=== PATIENT | female | born 1975 | race Caucasian/White ===

== ENCOUNTER 2021-12-15 06:11 | Emergency (ER) | payer MEDICAID, OTHER ==
[~2021-12-15] VITALS: Ht 165.1 cm; Wt 113.9 kg
[2021-12-15 06:11] VITALS: BP 126/79
[2021-12-15] MEDS ORDERED: IBUP800T27 PO (08:27)
[2021-12-15] MEDS ORDERED: METH750T22 PO (08:27)
[2021-12-15] MEDS ORDERED: KETOROLAC TROMETH 60MG/2ML VIAL IM ONE (08:30)
== END 2021-12-15 08:30 | disposition home or self-care (01) ==
LOC: ER 06:11
DX: M72.2 Plantar fascial fibromatosis (principal)
CPT/HCPCS: 73620; 96372; 99283; J1885

== ENCOUNTER 2022-07-14 12:21 | Emergency (ER) | payer MEDICAID ==
[~2022-07-14] VITALS: Ht 170.2 cm; Wt 95.4 kg
[~2022-07-14 12:21] MED LIST: IBUP800T27 PO; METH750T22 PO
[2022-07-14] MEDS ORDERED: HYDROcodone-ACET 10/325MG TAB PO ONE (16:00)
[2022-07-14] MEDS ORDERED: KETOROLAC TROMETH 60MG/2ML VIAL IM ONE (16:00)
[2022-07-14] MEDS ORDERED: HYDR-4902 PO (16:44)
[2022-07-14] MEDS ORDERED: IBUP800T26 PO (16:44)
[2022-07-14] MEDS ORDERED: CYCL-839 PO (16:44)
[2022-07-14 16:52] VITALS: BP 118/74
== END 2022-07-14 16:52 | disposition home or self-care (01) ==
LOC: EDBD 12:21 → ER 12:21
DX: M47.816 Spondylosis without myelopathy or radiculopathy, lumbar region (principal); M54.40 Lumbago with sciatica, unspecified side; Z79.1 Long term (current) use of non-steroidal anti-inflammatories (NSAID); Z79.899 Other long term (current) drug therapy
CPT/HCPCS: 72100; 96372; 99283; J1885

== ENCOUNTER 2022-10-16 16:22 | Emergency (ER) | payer MEDICAID ==
[~2022-10-16] VITALS: Ht 165.1 cm; Wt 117.4 kg
[~2022-10-16 16:22] MED LIST changes: +CYCL-839 PO; +HYDR-4902 PO; +IBUP800T26 PO
[2022-10-16 17:11] LABS: Urine Bacteria FEW /hpf (None Seen); Urine Blood 3+ /uL (Negative); Urine Hyaline Cast FEW /lpf (0 - 2); Urine Mucus FEW (None Seen); Urine Specific Gravity 1.026 (1.001-1.035); Urine WBC 32 /hpf (0 - 5)
[2022-10-16 18:53] VITALS: BP 141/92
[2022-10-16] MEDS ORDERED: CYCL-837 PO (20:07)
[2022-10-16] MEDS ORDERED: IBUP800T27 PO (20:07)
[2022-10-16] MEDS ORDERED: SULF800T7 PO (20:07)
== END 2022-10-16 20:20 | disposition home or self-care (01) ==
LOC: ER 16:22
DX: S39.012A Strain of muscle, fascia and tendon of lower back, initial encounter (principal); S16.1XXA Strain of muscle, fascia and tendon at neck level, initial encounter; N39.0 Urinary tract infection, site not specified; V43.52XA Car driver injured in collision with other type car in traffic accident, initial encounter; Y93.89 Activity, other specified; Y92.488 Other paved roadways as the place of occurrence of the external cause; Y99.8 Other external cause status
CPT/HCPCS: 72100; 81001

== ENCOUNTER 2023-08-10 12:09 | Emergency (ER) | payer MEDICAID ==
[~2023-08-10] VITALS: Ht 165.1 cm; Wt 119.0 kg
[2023-08-10 12:09] VITALS: TEMP 97.5
[~2023-08-10 12:09] MED LIST changes: +CYCL-837 PO; +IBUP-1455 PO; +IBUP-1456 PO; -IBUP800T26 PO; -IBUP800T27 PO; +METH-1182 PO; -METH750T22 PO; +SULF800T23 PO
[2023-08-10 12:17] VITALS: O2SAT 100
[2023-08-10 13:09] LABS: Urine Bacteria FEW /hpf (None Seen); Urine Blood 3+ /uL (Negative); Urine Clarity HAZY (Clear); Urine Color Red (Yellow); Urine Mucus FEW (None Seen); Urine Protein, UAD 2+ (Negative); Urine Specific Gravity 1.026 (1.001-1.035); Urine Urobilinogen Normal (Negative); Urine WBC 104 /hpf (0 - 5); Urine pH 5.5 (5.0-8.0)
[2023-08-10 13:15] VITALS: BP 160/84; PULSE 84; RESP 20
[2023-08-10] MEDS: MORPHINE SULFATE 4 MG/ML SYR/VIAL IV ONE (13:15)
[2023-08-10] MEDS: PANTOPRAZOLE 40 MG/10 ML VIAL INJ IV ONE (13:15)
[2023-08-10] MEDS: ONDANSETRON HCL 4 MG/2 ML VIAL IV ONE (13:15)
[2023-08-10] MEDS: SODIUM CHLORIDE 0.9% 1,000 ML IVB ONE (13:16)
[2023-08-10 13:21] LABS: Basophils # (auto) 0.1 10 ^3/uL (0-0.2); Basophils % (auto) 0.9 % (0.0-2.0); Eosinophils # (auto) 0.3 10 ^3/uL (0-0.8); Mean Corpuscular Hemoglobin 26.7 pg (28.0-32.0); Monocytes # (auto) 0.9 10 ^3/uL (0-1.3); White Blood Cell 9.6 10^3/uL (4.4-10.8)
[2023-08-10 13:23] LABS: Eosinophils % (auto) 3.6 % (0.0-7.0); Hematocrit 41.9 % (36.0-46.0); Hemoglobin 13.7 g/dL (12.2-16.2); Lymphocytes # (auto) 2.7 10 ^3/uL (0.4-5.4); Lymphocytes % (auto) 27.9 % (10.0-50.0); Mean Corpuscular Hgb Conc. 32.6 g/dL (32.0-36.0); Mean Corpuscular Volume 81.9 fL (80.0-100.0); Monocytes % (auto) 9.5 % (0.0-12.0); Neutrophils # (auto) 5.6 10 ^3/uL (1.6-8.6); Neutrophils % (auto) 58.1 % (37.0-80.0); Nucleated Red Blood Cells % 0.3 %; Red Blood Cells 5.12 10^6/uL (4.0-5.20); Red Cell Distribution Width 16.8 % (11.8-14.3)
[2023-08-10] MEDS: cefTRIAXone 1GM/50ML D5W 50 ML IV ONE (13:30)
[2023-08-10 13:39] LABS: Alanine Aminotransferase 63 U/L (7-40); Albumin 3.9 g/dL (3.2-4.8); Alkaline Phosphatase 28 U/L (46-116); Anion Gap 7 (5-15); Aspartate Aminotransferase 53 U/L (13-40); BUN/Creatinine Ratio 11.5 (10.0-20.0); Blood Urea Nitrogen 9 mg/dL (9-23); Calcium 9.7 mg/dL (8.7-10.4); Carbon Dioxide 22 mmol/L (20-30); Chloride 108 mmol/L (98-107); Glucose 87 mg/dL (74-106); Lipase 34 U/L (12-53); Potassium 4.7 mmol/L (3.5-5.1); Sodium 137 mmol/L (136-145)
[2023-08-10 13:40] LABS: Bilirubin, Total 0.7 mg/dL (0.2-1.0)
[2023-08-10 13:57] LABS: Platelet Estimate Adequate
[2023-08-10 13:58] LABS: RBC Morphology Normal
[2023-08-10] MEDS ORDERED: TRAM50TA2 PO (16:29)
[2023-08-10] MEDS ORDERED: CIPR-173 PO (16:29)
== END 2023-08-10 16:29 | disposition home or self-care (01) ==
LOC: ER 12:09
DX: N39.0 Urinary tract infection, site not specified (principal); Z98.51 Tubal ligation status; Z91.040 Latex allergy status
CPT/HCPCS: 36415; 74176; 76705; 80053; 81001; 83690; 85025; 96365; 96375; 99285; C9113; J0696; J2270; J2405; J7030

== ENCOUNTER 2024-09-22 09:15 | Emergency (ER) | payer MEDICAID ==
[~2024-09-22] VITALS: Ht 165.1 cm; Wt 113.5 kg
[~2024-09-22 09:15] MED LIST changes: +CIPR-173 PO; +TRAM50TA2 PO
[2024-09-22 09:55] VITALS: PULSE 92; RESP 20; O2SAT 97
--- NOTE | 2024-09-22 10:26 | ED.PDOC ---
HPI Comments 49Y F with PMHx HTN presents to ED with chief complaint chest pain x1hr with SOB, productive cough, chills, sore throat, diarrhea, and rt arm numbness/tingling. Pt denies fever, nausea, vomiting, and all urinary symptoms. Pt has taken cough drops at home without relief. 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 No other symptoms/history reported. Chief Complaint: Chest Pain Time Seen by MD: 10:05 Primary Care Provider: TSERING MORENO Reviewed Notes: Nurses Notes, Medications, Allergies Allergies: Coded Allergies: Latex (Verified Allergy, Unknown, 08/10/23) Home Meds Active Scripts Ciprofloxacin Hcl (Cipro) 500 Mg Tab, 1 TAB PO BID, #14 TAB Prov:FRANCOIS VILLAFANA MD 08/10/23 Tramadol Hcl (Tramadol Hcl) 50 Mg Tab, 50 MG PO Q8HP PRN for 5 Days, #15 TAB Prov:FRANCOIS VILLAFANA MD 08/10/23 Cyclobenzaprine Hcl (Cyclobenzaprine Hcl) 5 Mg Tab, 1 TAB PO QPM PRN, #14 TAB 0 Refills Prov:ANNABEL JACQUES 10/16/22 Ibuprofen (Ibuprofen) 800 Mg Tab, 1 TAB PO TID PRN, #30 TAB 0 Refills Prov:ANNABEL JACQUES 10/16/22 Sulfamethoxazole W/Trimethopri (Trimethoprim/Sulfamethoxa) 1 Tab Tab, 1 TAB PO BID for 7 Days, #14 TAB 0 Refills Prov:ANNABEL JACQUES 10/16/22 Cyclobenzaprine Hcl (Cyclobenzaprine Hcl) 10 Mg Tab, 10 MG PO TID, #20 TAB Prov:OG CORTEZ 07/14/22 Hydrocodone-Acetaminophen (Hydrocodone Bitartrate/AC 5-325 mg) 1 Tab Tab, 1 TAB PO Q6HP PRN, #20 TAB Prov:OG CORTEZ 07/14/22 Ibuprofen Micronized (Ibuprofen) 800 Mg Tab, 800 MG PO Q8HP PRN, #30 TAB Prov:OG CORTEZ 07/14/22 Methocarbamol (Methocarbamol) 750 Mg Tab, 750 MG PO QHSP PRN for 20 Days, #20 TAB Prov:NAZIA IYER 12/15/21 Ibuprofen (Ibuprofen) 800 Mg Tab, 800 MG PO TID PRN, #30 TAB Prov:SHIREENNAZIA BUTTERFIELD 12/15/21 Information Source: Patient Mode of Arrival: Wheelchair Severity: Moderate Timing: Hours Duration: Since onset Prehospital treatment: None Location: Substernal Quality: Other Onset: Other Cardiac Risk Factors: HTN PE Risk Factors: None History of: None Modifying Factors: Nothing Associated Signs and Symptoms: SOB, Other Past Medical History PAST MEDICAL HISTORY: Arthritis, HTN Surgical History: , Tubal Ligation 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 History Family History Family History: Unknown Family History (Other): Appendicitis Social History Smoker: Non-Smoker Alcohol: Occasionally Drugs: Denies Drug Use Lives In: Home Constitutional: reports: chills; denies: diaphoresis, fatigue, fever, malaise, sweats, weakness, others EENTM: reports: throat pain; denies: blurred vision, double vision, ear bleeding, ear discharge, ear drainage, ear pain, ear ringing, eye pain, eye redness, hearing loss, mouth pain, mouth swelling, nasal discharge, nose bleeding, nose congestion, nose pain, photophobia, tearing, throat swelling, voice changes, others Respiratory: reports: cough, shortness of breath; denies: hemoptysis, orthopnea, SOB at rest, SOB with excertion, stridor, wheezing, others Cardiovascular: reports: chest pain; denies: dizzy spells, diaphoresis, Dyspnea on exertion, edema, irregular heart beat, left arm pain, lightheadedness, palpitations, PND, syncope, others Gastrointestinal: reports: diarrhea; denies: abdomen distended, abdominal pain, blood streaked bowels, constipated, dysphagia, difficulty swallowing, hematemesis, melena, nausea, poor appetite, poor fluid intake, rectal bleeding, rectal pain, vomiting, others Genitourinary: denies: abnormal vagina bleeding, burning, dyspareunia, dysuria, flank pain, frequency, hematuria, incontinence, pain, , vagina discharge, urgency, others Neurological: reports: numbness (right arm), tingling (right arm); denies: dizziness, fainting, headache, left sided numbness, left sided weakness, paresthesia, pre-existing deficit, right sided numbness, right sided weakness, seizure, speech problems, tremors, weakness, others Musculoskeletal: denies: back pain, gout, joint pain, joint swelling, muscle pain, muscle stiffness, neck pain, others Integumetry: denies: bruises, change in color, change in hair/nails, dryness, laceration, lesions, lumps, rash, wounds, others Allergic/Immunocompromised: denies: Difficulty Healing, Frequent Infections, Hives, Itching, others Hematologic/Lymphatic: denies: anemia, blood clots, easy bleeding, easy bruising, swollen glands, others Endocrine: denies: excessive hunger, excessive sweating, excessive thirst, excessive urination, flushing, intolerance to cold, intolerance to heat, unexplained weight gain, unexplained weight loss, others Psychiatric: denies: anxiety, bipolar disorder, depression, hopeless, panic disorder, schizophrenia, sleepless, suicidal, others All Other Systems: Reviewed and Negative Physical Exam General Appearance: No Apparent Distress, Normal HEENT: Normal ENT Inspection, Pharynx Normal, TMs Normal Neck: Full Range of Motion, Non-Tender, Normal, Normal Inspection Respiratory: Chest Non-Tender, Lungs Clear, No Accessory Muscle Use, No Respiratory Distress, Normal Breath Sounds Cardiovascular: No Edema, No JVD, No Murmur, No Gallop, Normal Peripheral Pulses, Regular Rate/Rhythm Breast Exam: Deferred Gastrointestinal: No Organomegaly, Non Tender, No Pulsatile Mass, Normal Bowel Sounds, Soft Genitalia: Deferred Pelvic: Deferred Rectal: Deferred Extremities: No calf tenderness, Normal capillary refill, Normal inspection, Normal range of motion, Non-tender, No pedal edema Musculoskeletal : Apperance: Normal Neurologic: Alert, medical doctor II-XII nml as Tested, No Motor Deficits, Normal Affect, Normal Mood, No Sensory Deficits Cerebellar Function: NOT DONE Reflexes: NOT DONE Skin: Dry, Normal Color, Warm Lymphatic: No Adenopathy Was a procedure done? Was a procedure done?: No CP Differential Dx Differential Diagnosis: Electrolyte Disorder, PVC's Differential Diagnosis: CHF, HTN Essential Differential Diagnosis: Chest Wall Pain, Gastritis, Myocardial Infarction, Pneumonia X-Ray, Labs, Meds, VS Vital Signs Date Time Temp Pulse Resp B/P (MAP) Pulse Ox O2 Delivery O2 Flow Rate FiO2 09/22/24 12:16 94 09/22/24 10:18 92 09/22/24 09:55 92 20 97 Room Air* 0 21 09/22/24 09:55 98.6 91 18 127/63 (84) 98 98.6 09/22/24 09:21 87 09/22/24 09:16 97.8 85 24 149/72 (97) 98 97.8 Lab Test 09/22/24 10:45 09/22/24 09:33 Range/Units Troponin I High Sensitivity 3 L 3 L </=34 ng/L White Blood Count 12.0 H 4.4-10.8 10^3/uL Red Blood Count 5.16 4.0-5.20 10^6/uL Hemoglobin 14.4 12.2-16.2 g/dL Hematocrit 43.1 36.0-46.0 % Mean Corpuscular Volume 83.5 80.0-100.0 fL Mean Corpuscular Hemoglobin 28.0 28.0-32.0 pg Mean Corpuscular Hemoglobin Concent 33.5 32.0-36.0 g/dL Red Cell Distribution Width 16.0 H 11.8-14.3 % Platelet Count 244 140-450 10^3/uL Mean Platelet Volume 9.1 6.9-10.8 fL Neutrophils (%) (Auto) 81.0 H 37.0-80.0 % Lymphocytes (%) (Auto) 9.1 L 10.0-50.0 % Monocytes (%) (Auto) 7.1 0.0-12.0 % Eosinophils (%) (Auto) 2.3 0.0-7.0 % Basophils (%) (Auto) 0.5 0.0-2.0 % Neutrophils # (Auto) 9.7 H 1.6-8.6 10 ^3/uL Lymphocytes # (Auto) 1.1 0.4-5.4 10 ^3/uL Monocytes # (Auto) 0.9 0-1.3 10 ^3/uL Eosinophils # (Auto) 0.3 0-0.8 10 ^3/uL Basophils # (Auto) 0.1 0-0.2 10 ^3/uL Nucleated Red Blood Cells 0.2 % Sodium Level 138 136-145 mmol/L Potassium Level 3.9 3.5-5.1 mmol/L Chloride Level 105 98-107 mmol/L Carbon Dioxide Level 19 L 20-31 mmol/L Anion Gap 14 5-15 Blood Urea Nitrogen 8 L 9-23 mg/dL Creatinine 0.83 0.550-1.02 mg/dL Glomerular Filtration Rate Calc 86 >90 mL/min BUN/Creatinine Ratio 9.6 L 10.0-20.0 Serum Glucose 96 74-106 mg/dL Calcium Level 10.3 8.7-10.4 mg/dL [facility] [id number] [place] [address] Ph: [phone] DIAGNOSTIC IMAGING Diagnostic Imaging Report : [id number] Signed PATIENT: RASHAD JAMESON ACCT: [id number] UNIT: [id number] : 1975 LOC: ER ROOM / BED: / AGE / SEX: 49 / F ADM STATUS: REG ER SERVICE 1251 ORDERING PHYSICIAN: CAESAR ROBERTS MD PROCEDURE(s): CXRP - CHEST PORTABLE REASON: chest pain ORDER NUMBER(s): [id number], ACCESSION NUMBER(s): [id number] INDICATION: chest pain TECHNIQUE: Frontal view of the chest. COMPARISON: None FINDINGS: The heart and mediastinal contours are grossly unremarkable. There is no evidence of pleural disease. The lungs are clear. The bony structures of the chest are intact without fracture. IMPRESSION: 1. No evidence of acute disease. ATED BY: SATINDER ROBERT MD DICTATED DATE/TIME: 09/22/241328 SIGNED BY: SATINDER ROBERT MD SIGNED DATE/TIME: 09/22/24 132 CC: Time of 1ST Reevaluation: 10:35 Reevaluation 1ST: Unchanged Patient Education/Counseling: Diagnosis, Treatment Family Education/Counseling: No Family Present Departure 1 Departure Time of Disposition: 14:32 (Patient presented with chest pain that was concerning for possible STEMI, ACS, PE, Pneumonia, Muscle Strain, COPD, Dissecti on. Data: 1. I ordered and reviewed the result of at least 3 labs including a CBC, BMP, and Troponin. 2. I independently interpreted the following tests: EKG which shows normal sinus rhythm and Chest X-ray which shows a benign chest.Risk:This patient presented with a high risk of morbidity due to further diagnostic testing or treatment and may suffer from an acute cardiac or respir atory disorder. After review of all the data patient is unlikely to have a pe , dissection, and is low risk for acs. Patient is stable at this time.Workup so far is benign and patient will be discharged with outpatient followup. ) Impression: Primary Impression: Acute chest pain Disposition: HOME / SELF CARE / HOMELESS Condition: Stable Additional Instructions: You presented today with chest pain. Your workup today was benign including labs, troponin, EKG, chest x-ray. Your pain may be from musculoskeletal strain, acid reflux, anxiety, a virus, or many other factors. It is important to follow up with your regular doctor within 1 week. If your symptoms worsen or you have any other concerns please return to the emergency room. Critical Care Note Critical Care Time?: No Stability Stability form required: No Heart Score Heart Score: Heart Score Response (Comments) Value History Slightly Suspicious 0 EKG Normal 0 Age 45-64 1 Risk Factors 1 or 2 risk factors 1 Troponin Normal limit 0 Total 2 I personally scribed for CAESAR ROBERTS MD ([facility]) on 09/22/24 at 10:26. Electronically submitted by Vianca Ellis ([employer]). I personally scribed for CAESAR ROBERTS MD ([email or web address]) on 09/22/24 at 12:02. Electronically submitted by Vianca Ellis ([employer]). I personally scribed for CAESAR ROBERTS MD ([facility]) on 09/22/24 at 13:35. Electronically submitted by Vianca Ellis ([employer]). CAESAR ROBERTS MD Sep 22, 2024 10:26
--- NOTE | 2024-09-22 13:31 | DVH ---
INDICATION: chest pain TECHNIQUE: Frontal view of the chest. COMPARISON: None FINDINGS: The heart and mediastinal contours are grossly unremarkable. There is no evidence of pleural disease . The lungs are clear. The bony structures of the chest are intact without fracture. IMPRESSION: 1. No evidence of acute disease.
[2024-09-22 13:44] LABS: Basophils # (auto) 0.1 10 ^3/uL (0-0.2); Basophils % (auto) 0.5 % (0.0-2.0); Eosinophils # (auto) 0.3 10 ^3/uL (0-0.8); Eosinophils % (auto) 2.3 % (0.0-7.0); Hematocrit 43.1 % (36.0-46.0); Hemoglobin 14.4 g/dL (12.2-16.2); Lymphocytes # (auto) 1.1 10 ^3/uL (0.4-5.4); Lymphocytes % (auto) 9.1 % (10.0-50.0); Mean Corpuscular Hgb Conc. 33.5 g/dL (32.0-36.0); Mean Corpuscular Volume 83.5 fL (80.0-100.0); Monocytes # (auto) 0.9 10 ^3/uL (0-1.3); Monocytes % (auto) 7.1 % (0.0-12.0); Neutrophils # (auto) 9.7 10 ^3/uL (1.6-8.6); Nucleated Red Blood Cells % 0.2 %; Platelet Count (auto) 244 10^3/uL (140-450); Red Blood Cells 5.16 10^6/uL (4.0-5.20)
[2024-09-22 13:47] LABS: Chloride 105 mmol/L (98-107); Potassium 3.9 mmol/L (3.5-5.1); Sodium 138 mmol/L (136-145)
[2024-09-22 13:48] LABS: Anion Gap 14 (5-15); Calcium 10.3 mg/dL (8.7-10.4)
[2024-09-22 13:53] LABS: BUN/Creatinine Ratio 9.6 (10.0-20.0); Carbon Dioxide 19 mmol/L (20-31); Glucose 96 mg/dL (74-106)
[2024-09-22 13:54] LABS: Blood Urea Nitrogen 8 mg/dL (9-23)
[2024-09-22 14:30] VITALS: BP 115/68; PULSE 91; RESP 16; O2SAT 95
[2024-09-22 14:57] VITALS: TEMP 97.9
[2024-09-22] MEDS: ACETAMINOPHEN 325 MG TAB PO ONE (14:57)
[2024-09-22] MEDS: ONDANSETRON ODT 4 MG TAB PO ONE (14:57)
--- NOTE | 2024-09-23 09:24 | ECG ---
[facility] Test Date: 2024-09-22 Test Time: 12:16:01 Pat Name: RASHDA JAMESON Department: ER Room: Gender: F Automation Test Developer: GP : 1975 Requested By: CAESAR ROBERTS Order Number: [id number] Reading MD: Braulio Gallo Measurements Intervals [place] Rate: 94 P: 46 ME: 157 QRS: -75 QRSD: 101 T: 43 QT: 372 QTc: 466 Interpretive Statements Sinus rhythm LAD, consider left anterior fascicular block Low voltage, precordial leads Abnormal R-wave progression, late transition Baseline wander in lead(s) II,III,aVF Electronically Signed On 09-24-2024 18:41:53 PDT by Braulio Gallo Please click the below link to view image of tracing.
--- NOTE | 2024-09-23 10:23 | ECG ---
[facility] Test Date: 2024-09-22 Test Time: 10:18:45 Pat Name: RASHAD JAMESON Department: ED Room: Gender: F Electrical Test Engineer: kathryn : 1975 Requested By: CAESAR ROBERTS Order Number: [id number] Reading MD: Braulio Gallo Measurements Intervals [place] Rate: 92 P: 12 [place]: 150 QRS: -36 QRSD: 102 T: 46 QT: 357 QTc: 442 Interpretive Statements Sinus rhythm Incomplete RBBB and LAFB Low voltage, precordial leads RSR' in V1 or V2, right VCD or RVH Electronically Signed On 09-24-2024 18:41:14 PDT by Braulio Gallo Please click the below link to view image of tracing.
--- NOTE | 2024-09-24 13:12 | ECG ---
[facility] Test Date: 2024-09-22 Test Time: 09:21:26 Pat Name: RASHAD JAMESON Department: ER Room: Gender: F Wax Pattern Assembler: VELIA : 1975 Requested By: CAESAR ROBERTS Order Number: [id number] Reading MD: Braulio Gallo Measurements Intervals [place] Rate: 87 P: 38 MS: 142 QRS: -72 QRSD: 102 T: 36 QT: 369 QTc: 444 Interpretive Statements Sinus rhythm LAD, consider left anterior fascicular block Low voltage, precordial leads Abnormal R-wave progression, late transition Electronically Signed On 09-24-2024 18:40:51 PDT by Braulio Gallo Please click the below link to view image of tracing.
== END 2024-09-22 15:04 | disposition home or self-care (01) ==
LOC: ER 09:15
DX: R07.89 Other chest pain (principal); I10 Essential (primary) hypertension; M19.90 Unspecified osteoarthritis, unspecified site; Z98.51 Tubal ligation status; Z98.890 Other specified postprocedural states
CPT/HCPCS: 36415; 71045; 80048; 84484; 85025; 93005; 99285; Q0162

== ENCOUNTER 2024-12-29 13:10 | Inpatient (IN) | payer MEDICAID ==
[~2024-12-29] VITALS: Ht 165.1 cm; Wt 113.9 kg
[2024-12-29] MEDS: MORPHINE SULFATE 4 MG/ML SYR/VIAL IV ONE (05:06)
[2024-12-29] MEDS: ONDANSETRON HCL 4 MG/2 ML VIAL IV ONE (05:06)
--- NOTE | 2024-12-29 16:26 | DVH ---
Indication: right flank pain Technique: CT axial images of the abdomen and pelvis are obtained without contrast. Coronal and sagit jana reformats were obtained. Radiation Dose Information: CTDI volume is 21 mGy. Dose-length product is 1064 mGy*cm Comparison: CT CT AB PEL WO CON-NO ORAL OR IV on DOS: 08/10/23 FINDINGS: There is limited interpretation of the abdomen and pelvis without administration of intravenous contr ast. Lung bases demonstrate no pleural effusion. Adrenal glands, spleen and pancreas unremarkable. Liver unremarkable in shape. No CT evidence for ch olelithiasis. Kidneys demonstrate no hydronephrosis. Nonobstructing right renal calculi measuring up to 2 mm. Stomach is partially distended. Small bowel loops are normal in caliber. Moderate volume stool in the colon. Normal appendix. The bladder is partially distended. Large left ovarian / adnexal lesion measuring 4.8 cm. Right ovar billy / adnexal lesion measuring 3.6 cm. No free pelvic fluid. No inguinal lymphadenopathy. Fefy-pd-ljjalstv bilateral sacroiliac degenerative joint disease. IMPRESSION: Large bilateral ovarian/ adnexal lesions measuring 4.8 cm on the left and 3.6 cm on the right. Recom mend pelvic ultrasound to exclude complex lesion/ mass, ovarian torsion. Nonobstructing right renal calculi up to 2 mm Other findings as described.
[2024-12-29 16:46] LABS: Hematocrit 45.6 % (36.0-46.0); Hemoglobin 15.0 g/dL (12.2-16.2); Mean Corpuscular Hemoglobin 27.5 pg (28.0-32.0); Mean Corpuscular Volume 84.0 fL (80.0-100.0); Nucleated Red Blood Cells % 0.4 %
--- NOTE | 2024-12-29 16:46 | ED.PDOC ---
History of Present Illness HPI Comments 49-year-old female with no reported PMHx present with a chief complaint of flank pain x onset this morning. Patient states that she initially went to Urgent Care and was referred to the ER due to having right sided flank pain. Patient believes that it may be a urinary tract infection. Patient denies any urinary symptoms at this time. Chief Complaint: Back Pain Time Seen by MD: 15:50 Primary Care Provider: JOSH Reviewed Notes: Medications, Allergies Allergies: Coded Allergies: Latex (Verified Allergy, Unknown, 08/10/23) Home Meds Active Scripts Ciprofloxacin Hcl (Cipro) 500 Mg Tab, 1 TAB PO BID, #14 TAB Prov:FRANCOIS VILLAFANA MD 08/10/23 Tramadol Hcl (Tramadol Hcl) 50 Mg Tab, 50 MG PO Q8HP PRN for 5 Days, #15 TAB Prov:FRANCOIS VILLAFANA MD 08/10/23 Cyclobenzaprine Hcl (Cyclobenzaprine Hcl) 5 Mg Tab, 1 TAB PO QPM PRN, #14 TAB 0 Refills Prov:ANNABEL JACQUES 10/16/22 Ibuprofen (Ibuprofen) 800 Mg Tab, 1 TAB PO TID PRN, #30 TAB 0 Refills Prov:ANNABEL JACQUES 10/16/22 Sulfamethoxazole W/Trimethopri (Trimethoprim/Sulfamethoxa) 1 Tab Tab, 1 TAB PO BID for 7 Days, #14 TAB 0 Refills Prov:ANNABEL JACQUES 10/16/22 Cyclobenzaprine Hcl (Cyclobenzaprine Hcl) 10 Mg Tab, 10 MG PO TID, #20 TAB Prov:OG CORTEZ 07/14/22 Hydrocodone-Acetaminophen (Hydrocodone Bitartrate/AC 5-325 mg) 1 Tab Tab, 1 TAB PO Q6HP PRN, #20 TAB Prov:OG CORTEZ 07/14/22 Ibuprofen Micronized (Ibuprofen) 800 Mg Tab, 800 MG PO Q8HP PRN, #30 TAB Prov:OG CORTEZ 07/14/22 Methocarbamol (Methocarbamol) 750 Mg Tab, 750 MG PO QHSP PRN for 20 Days, #20 TAB Prov:NAZIA IYER 12/15/21 Ibuprofen (Ibuprofen) 800 Mg Tab, 800 MG PO TID PRN, #30 TAB Prov:NAZIA IYER 12/15/21 Information Source: Patient Mode of Arrival: Wheelchair Severity: Moderate Timing: Hours Duration: Since onset Prehospital treatment: None Past Medical History PAST MEDICAL HISTORY: Arthritis, HTN Surgical History: , Tubal Ligation 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: No Pertinent 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 History Family History Family History: Unknown Family History (Other): Appendicitis Social History Smoker: Non-Smoker Alcohol: Occasionally Drugs: Denies Drug Use Lives In: Home Constitutional: denies: chills, diaphoresis, fatigue, fever, malaise, sweats, weakness, others EENTM: denies: blurred vision, double vision, ear bleeding, ear discharge, ear drainage, ear pain, ear ringing, eye pain, eye redness, hearing loss, mouth pain , mouth swelling, nasal discharge, nose bleeding, nose congestion, nose pain, photophobia, tearing, throat pain, throat swelling, voice changes, others Respiratory: denies: cough, hemoptysis, orthopnea, SOB at rest, shortness of breath, SOB with excertion, stridor, wheezing, others Cardiovascular: denies: chest pain, dizzy spells, diaphoresis, Dyspnea on exertion, edema, irregular heart beat, left arm pain, lightheadedness, palpitations, PND, syncope, others Gastrointestinal: denies: abdomen distended, abdominal pain, blood streaked bowels, constipated, diarrhea, dysphagia, difficulty swallowing, hematemesis, melena, nausea, poor appetite, poor fluid intake, rectal bleeding, rectal pain, vomiting, others Genitourinary: reports: flank pain; denies: abnormal vagina bleeding, burning, dyspareunia, dysuria, frequency, hematuria, incontinence, pain, , vagina discharge, urgency, others Neurological: denies: dizziness, fainting, headache, left sided numbness, left sided weakness, numbness, paresthesia, pre-existing deficit, right sided numbness, right sided weakness, seizure, speech problems, tingling, tremors, weakness, others Musculoskeletal: denies: back pain, gout, joint pain, joint swelling, muscle pain, muscle stiffness, neck pain, others Integumetry: denies: bruises, change in color, change in hair/nails, dryness, laceration, lesions, lumps, rash, wounds, others Allergic/Immunocompromised: denies: Difficulty Healing, Frequent Infections, Hives, Itching, others Hematologic/Lymphatic: denies: anemia, blood clots, easy bleeding, easy bruising, swollen glands, others Endocrine: denies: excessive hunger, excessive sweating, excessive thirst, excessive urination, flushing, intolerance to cold, intolerance to heat, unexplained weight gain, unexplained weight loss, others Psychiatric: denies: anxiety, bipolar disorder, depression, hopeless, panic disorder, schizophrenia, sleepless, suicidal, others All Other Systems: Reviewed and Negative Physical Exam General Appearance: No Apparent Distress, Normal HEENT: Normal ENT Inspection, Pharynx Normal, TMs Normal Neck: Full Range of Motion, Non-Tender, Normal, Normal Inspection Respiratory: Chest Non-Tender, Lungs Clear, No Accessory Muscle Use, No Respiratory Distress, Normal Breath Sounds Cardiovascular: No Edema, No JVD, No Murmur, No Gallop, Normal Peripheral Pulses, Regular Rate/Rhythm Breast Exam: Deferred Gastrointestinal: No Organomegaly, Non Tender, No Pulsatile Mass, Normal Bowel Sounds, Soft Genitalia: Deferred Pelvic: Deferred Rectal: Deferred Extremities: No calf tenderness, Normal capillary refill, Normal inspection, Normal range of motion, Non-tender, No pedal edema Musculoskeletal : Apperance: Normal Neurologic: Alert, drying tunnel operator II-XII nml as Tested, No Motor Deficits, Normal Affect, Normal Mood, No Sensory Deficits Cerebellar Function: Normal Reflexes: Normal Skin: Dry, Normal Color, Warm Lymphatic: No Adenopathy Was a procedure done? Was a procedure done?: No Differential Dx Considerations may include: Acute appendicitis, urinary tract infection, pyelonephritis, gynecological issue, musculoskeletal strain X-Ray, Labs, Meds, VS Vital Signs Date Time Temp Pulse Resp B/P (MAP) Pulse Ox O2 Delivery O2 Flow Rate FiO2 12/29/24 13:35 97.8 69 18 130/79 (96) 100 97.8 Lab Test 12/29/24 16:27 Range/Units White Blood Count 6.6 4.4-10.8 10^3/uL Red Blood Count 5.43 H 4.0-5.20 10^6/uL Hemoglobin 15.0 12.2-16.2 g/dL Hematocrit 45.6 36.0-46.0 % Mean Corpuscular Volume 84.0 80.0-100.0 fL Mean Corpuscular Hemoglobin 27.5 L 28.0-32.0 pg Mean Corpuscular Hemoglobin Concent 32.8 32.0-36.0 g/dL Red Cell Distribution Width 16.7 H 11.8-14.3 % Platelet Count 257 140-450 10^3/uL Mean Platelet Volume 8.6 6.9-10.8 fL Neutrophils (%) (Auto) 50.0 37.0-80.0 % Lymphocytes (%) (Auto) 32.9 10.0-50.0 % Monocytes (%) (Auto) 11.1 0.0-12.0 % Eosinophils (%) (Auto) 5.1 0.0-7.0 % Basophils (%) (Auto) 0.9 0.0-2.0 % Neutrophils # (Auto) 3.3 1.6-8.6 10 ^3/uL Lymphocytes # (Auto) 2.2 0.4-5.4 10 ^3/uL Monocytes # (Auto) 0.7 0-1.3 10 ^3/uL Eosinophils # (Auto) 0.3 0-0.8 10 ^3/uL Basophils # (Auto) 0.1 0-0.2 10 ^3/uL Nucleated Red Blood Cells 0.4 % Sodium Level 138 136-145 mmol/L Potassium Level 4.7 3.5-5.1 mmol/L Chloride Level 106 98-107 mmol/L Carbon Dioxide Level 23 20-31 mmol/L Anion Gap 9 5-15 Blood Urea Nitrogen 15 9-23 mg/dL Creatinine 0.90 0.550-1.02 mg/dL Glomerular Filtration Rate Calc 78 >90 mL/min BUN/Creatinine Ratio 16.7 10.0-20.0 Serum Glucose 78 74-106 mg/dL Calcium Level 10.7 H 8.7-10.4 mg/dL Current Medications Medications (Trade) Dose Ordered Sig/Michelle Route Start Time Stop Time Status Last Admin Tamsulosin HCl (Flomax) 0.4 mg ONCE ONCE PO 12/29/24 16:00 12/29/24 16:01 DC 12/29/24 16:56 Acetaminophen/ Hydrocodone Bitart (Donaldson 5/325MG Tab) 1 tab ONCE ONCE PO 12/29/24 16:00 12/29/24 16:01 DC 12/29/24 16:56 Time of 1ST Reevaluation: 16:20 Reevaluation 1ST: Unchanged Patient Education/Counseling: Diagnosis, Treatment, Need For Follow Up Family Education/Counseling: No Family Present SEPSIS Sepsis Screen Date sepsis recognized/suspect: Dec 29, 2024 Time Sepsis recognized/suspect: 1334 Recent Procedure: No On Antibiotic Therapy: No Respiratory Rate >20: No Heart Rate >90: No Temp<36 C (96.8 F) or >38.3 C: No SBP <90 or MAP <65 mmHG: No New Acute Mental Status Change: No Is the patient on CPAP, BIPAP,: No Physician Orders Urinalysis (12/29/24 15:52) Ct Ab Pel Wo Con-No Oral Or Iv (12/29/24 15:52) Pelvic (12/29/24 18:01) * Roof Bolter Operator Consultation (12/29/24 18:02) Vital Signs Date Time Temp Pulse Resp B/P (MAP) Pulse Ox O2 Delivery O2 Flow Rate FiO2 12/29/24 13:35 97.8 69 18 130/79 (96) 100 97.8 Laboratory Tests Test 12/29/24 16:27 White Blood Count 6.6 10^3/uL (4.4-10.8) Medications Medications Dose Ordered Sig/Michelle Route Start Time Stop Time Status Last Admin Dose Admin Acetaminophen/ Hydrocodone Bitart 1 tab ONCE ONCE PO 12/29/24 16:00 12/29/24 16:01 DC 12/29/24 16:56 Tamsulosin HCl 0.4 mg ONCE ONCE PO 12/29/24 16:00 12/29/24 16:01 DC 12/29/24 16:56 Departure 1 Departure Time of Disposition: 18:04 (Patient presented with abdominal pain that was concerning for possible appendicits, gastritis, cholecystitis, colitis, gastro enteritis, sbo, or orther possible surgical emergency. Data: 1. I ordered and reviewed the result of at least 3 labs including a CBC, BMP, and Urinalysis. 2. I independently interpreted the following tests: CT Abdoment and Pelvis is concerning for ovarian mass.Risk:This patient has a high risk of morbidity due to further diagnostic testing or treatment and may suffer from an acute abdominal process disorder. Workup reveals ovarian mass with intractable abdominal pain and patient should be admitted for further workup. and possible expert consultation. Pelvic ultrasound is ordered now OB consult was placed.) Impression: Primary Impression: Ovarian mass Additional Impression: Intractable abdominal pain Disposition: ADMITTED INPATIENT Admit to: Med Surg Condition: Serious Critical Care Note Critical Care Time?: Yes Critical care comment: Intractable abdominal pain Authorized and Performed by: Caesar Acosta MD Total critical care time: Approximately 39 minutes Due to a high probability of clinically significant, life threatening deterioration, the patient required my highest level of preparedness to intervene emergently and I personally spent this critical care time directly and personally managing the patient. This critical care time included obtaining a history; examining the patient; pulse oximetry; ordering and review of studies; arranging urgent treatment with development of a management plan; evaluation of patient's response to treatment; frequent reassessment; and, discussions with other providers. This critical care time was performed to assess and manage the high probability of imminent, life-threatening deterioration that could result in multi-organ failure. It was exclusive of separately billable procedures and treating other patients and teaching time. Please see my other sections and the rest of the note for further information on patient assessment and treatment. Stability Stability form required: No Heart Score Heart Score: Heart Score Response (Comments) Value History N/A 0 EKG N/A 0 Age N/A 0 Risk Factors N/A 0 Troponin N/A 0 Total 0 I personally scribed for CAESAR ACOSTA MD ([email or web address]) on 12/29/24 at 16:46. Electronically submitted by Suresh Espinoza ([email or web address]). CAESAR ACOSTA MD Dec 29, 2024 16:46
[2024-12-29 16:56] LABS: Chloride 106 mmol/L (98-107); Potassium 4.7 mmol/L (3.5-5.1); Sodium 138 mmol/L (136-145)
[2024-12-29] MEDS: TAMSULOSIN HYDROCHLORIDE 0.4 MG CAP PO ONE (16:56)
[2024-12-29] MEDS: HYDROcodone-ACET 5/325MG TAB PO ONE (16:56)
[2024-12-29 16:57] LABS: Anion Gap 9 (5-15); Carbon Dioxide 23 mmol/L (20-31)
[2024-12-29 16:58] LABS: Calcium 10.7 mg/dL (8.7-10.4)
[2024-12-29 17:02] LABS: BUN/Creatinine Ratio 16.7 (10.0-20.0); Blood Urea Nitrogen 15 mg/dL (9-23); Glucose 78 mg/dL (74-106)
--- NOTE | 2024-12-29 18:43 | DVH ---
INDICATION: better evaluate x-ray findings TECHNIQUE: Multiple real-time grayscale transabdominal sonographic images along with color and duplex Doppler of the uterus and ovaries were obtained. COMPARISON: None FINDINGS: The uterus measures 9 x 4.8 x 5.8 cm. The endometrial stripe measures 0.82 mm. The right ovary measures 3.8 x 2.3 x 3.9 cm. Volume of the right ovary is 17.8 cc. There is a 2.6 x 1.9 x 2.2 cm anechoic mass in the right ovary consistent with follicle. The left ovary measures 5.1 x 4.8 x 5.3 cm. Left ovarian volume is 66.7 cc. There is a 4.8 x 4.7 x 4.3 cm anechoic mass in the left ovary consistent with an ovarian cyst. Recommend follow-up. Subsequent color and duplex Doppler interrogation of the ovaries demonstrated symmetric vascular flow to both ovaries, though this does not exclude the possibility of torsion due to the dual blood suppl y. IMPRESSION: 1. Grossly unremarkable pelvic ultrasound. 2. Bilateral anechoic masses in the ovaries greater on the left than the right recommend follow-up americo garcia.
[2024-12-29 19:03] LABS: Urine Amorphous Crystal FEW /hpf (None Seen); Urine Protein, UAD Negative (Negative)
[2024-12-29] MEDS ORDERED: ACETAMINOPHEN 325 MG TAB PO PRN (21:45)
--- NOTE | 2024-12-29 21:51 | DVHHP2 ---
History of Present Illness History of Present Illness Patient is 49 years old female with past medical history of hyperlipidemia, arthritis came with a complaint of right flank pain. As per patient right flank pain started today morning, gradual onset, pressure-like, 10/10, constant, relieved with some pain medication, no aggravating factor or no radiation. With that pain patient went to an urgent care center and she was asked to go to ER. Patient also reported occasional right lower abdominal pain, crampy in nature for last several months. Patient denied any dysuria, fever, vaginal discharge, diarrhea, history of STD/chest pain or shortness of breath or acute joint pain or swelling. urinalysis negative for UTI. Initial lab workup revealed serum bilirubin 0.8, AST 82, ALT a 103, alkaline phosphatase 25. CT scan of abdomen pelvis revealed- Large bilateral ovarian/ adnexal lesions measuring 4.8 cm on the left and 3.6 cm on the right. Nonobstructing right renal calculi up to 2 mm. Ultrasound of the pelvis revealed-Bilateral anechoic masses in the ovaries greater on the left than the right recommend follow-up study.There is a 2.6 x 1.9 x 2.2 cm anechoic mass in the right ovary consistent with follicle and a 4.8 x 4.7 x 4.3 cm anechoic mass in the left ovary consistent with an ovarian cyst. Ultrasound of the liver revealed- Nonspecific increased echotexture of the pancreatic parenchyma. Past Medical History Hyperlipidemia, arthritis Family History Mom had hypertensio, dad hypertension, hyperlipidemia Past Social History Smoker, occasional alcoholic socially, no drug abuse, lives with the Review of Systems Review of Systems Allergy- NKDA Patient was seen today at the bedside. Cardiovascular- deny acute chest pain or shortness of breath or cough or palpitation Respiratory denies cough or short of breath or wheezing Gastrointestinal- denies any rectal bleeding, nausea or vomiting Musculoskeletal-denies acute joint swelling or tenderness or redness Neurological- denies acute dysarthria, dysphagia, change in vision Psychiatry- denies depression or SI or HI Skin- denies acute rash or purpura Allergies: Coded Allergies: Latex (Verified Allergy, Unknown, 08/10/23) Medications Current Medications Medications Dose Ordered Sig/Michelle Route Start Time Stop Time Status Last Admin Dose Admin Sodium Chloride 10 ml Q8HR IV 12/29/24 22:00 UNV Enoxaparin Sodium 40 mg DAILY SC 12/30/24 10:00 UNV Acetaminophen 650 mg Q6HP PRN PO 12/29/24 21:45 UNV Exam Vital Signs Vital Signs Date Time Temp Pulse Resp B/P (MAP) Pulse Ox O2 Delivery O2 Flow Rate FiO2 12/29/24 20:09 97.2 60 20 141/98 (112) 100 97.2 Exam General examination- awake, alert, oriented, convert HEENT- PEERLA, no acute nasal discharge Cardiovascular- S1-S2 audible, rate and rhythm regular, no murmur Respiratory- CTAB, no wheeze or rhonchi Gastrointestinal-nontender, bowel sound+. Nondistended Musculoskeletal-right lower back mild tenderness+ Renal system-no renal angle tenderness Lower extremity- no leg edema Neurological- cranial nerves intact, no acute dysarthria or dysphagia Psychiatry- denies depression or SI or HI Skin- no acute rash or purpura Labs/Xrays Labs Test 12/29/24 16:27 12/29/24 13:41 Range/Units White Blood Count 6.6 4.4-10.8 10^3/uL Red Blood Count 5.43 H 4.0-5.20 10^6/uL Hemoglobin 15.0 12.2-16.2 g/dL Hematocrit 45.6 36.0-46.0 % Mean Corpuscular Volume 84.0 80.0-100.0 fL Mean Corpuscular Hemoglobin 27.5 L 28.0-32.0 pg Mean Corpuscular Hemoglobin Concent 32.8 32.0-36.0 g/dL Red Cell Distribution Width 16.7 H 11.8-14.3 % Platelet Count 257 140-450 10^3/uL Mean Platelet Volume 8.6 6.9-10.8 fL Neutrophils (%) (Auto) 50.0 37.0-80.0 % Lymphocytes (%) (Auto) 32.9 10.0-50.0 % Monocytes (%) (Auto) 11.1 0.0-12.0 % Eosinophils (%) (Auto) 5.1 0.0-7.0 % Basophils (%) (Auto) 0.9 0.0-2.0 % Neutrophils # (Auto) 3.3 1.6-8.6 10 ^3/uL Lymphocytes # (Auto) 2.2 0.4-5.4 10 ^3/uL Monocytes # (Auto) 0.7 0-1.3 10 ^3/uL Eosinophils # (Auto) 0.3 0-0.8 10 ^3/uL Basophils # (Auto) 0.1 0-0.2 10 ^3/uL Nucleated Red Blood Cells 0.4 % Sodium Level 138 136-145 mmol/L Potassium Level 4.7 3.5-5.1 mmol/L Chloride Level 106 98-107 mmol/L Carbon Dioxide Level 23 20-31 mmol/L Anion Gap 9 5-15 Blood Urea Nitrogen 15 9-23 mg/dL Creatinine 0.90 0.550-1.02 mg/dL Glomerular Filtration Rate Calc 78 >90 mL/min BUN/Creatinine Ratio 16.7 10.0-20.0 Serum Glucose 78 74-106 mg/dL Calcium Level 10.7 H 8.7-10.4 mg/dL Urine Color Light-yellow Yellow Urine Clarity Turbid H Clear Urine pH 5.0 5.0-9.0 Urine Specific Amigo 1.022 1.001-1.035 Urine Protein Negative Negative Urine Ketones Negative Negative Urine Blood Negative Negative /uL Urine Nitrite Negative Negative Urine Bilirubin Negative Negative Urine Urobilinogen Normal Negative mg/dL Urine Leukocyte Esterase Negative Negative /uL Urine RBC 1 0 - 4 /hpf Urine Microscopic WBC 2 0-5 /HPF Urine Squamous Epithelial Cells Few <5 /hpf Urine Uric Acid Crystals Few None Seen /hpf Urine Amorphous Crystals Few None Seen /hpf Urine Bacteria None seen None Seen /hpf Urine Mucus Few None Seen Urine Glucose Normal Normal mg/dL SEPSIS Sepsis Screen Date sepsis recognized/suspect: Dec 29, 2024 Time Sepsis recognized/suspect: 1334 Recent Procedure: No On Antibiotic Therapy: No Respiratory Rate >20: No Heart Rate >90: No Temp<36 C (96.8 F) or >38.3 C: No SBP <90 or MAP <65 mmHG: No New Acute Mental Status Change: No Is the patient on CPAP, BIPAP,: No Physician Orders Ct Ab Pel Wo Con-No Oral Or Iv (12/29/24 15:52) Pelvic (12/29/24 18:01) * Spinner Operator Consultation (12/29/24 18:02) Chlamydia/Gc Amplification (12/29/24 18:06) Admit (12/29/24 21:44) Code Status (12/29/24 21:44) Sodium Chloride Lock (Saline Lock Ns) (12/29/24 22:00) Enoxaparin Sodium (Lovenox) (12/30/24 10:00) Complete Blood Count (12/30/24 04:00) Comprehensive Metabolic Panel (12/30/24 04:00) Acetaminophen Tablet (Tylenol Tablet) (12/29/24 21:45) Notify Of Changes From Base (12/29/24 21:44) Hepatic Panel (12/29/24 21:47) Magnesium (12/29/24 21:47) Famotidine Tablet (Pepcid Tablet) (12/29/24 22:00) * Spinner Operator Consultation (12/29/24 21:47) Vital Signs Date Time Temp Pulse Resp B/P (MAP) Pulse Ox O2 Delivery O2 Flow Rate FiO2 12/29/24 20:09 97.2 60 20 141/98 (112) 100 97.2 Laboratory Tests Test 12/29/24 16:27 White Blood Count 6.6 10^3/uL (4.4-10.8) Medications Medications Dose Ordered Sig/Michelle Route Start Time Stop Time Status Last Admin Dose Admin Acetaminophen/ Hydrocodone Bitart 1 tab ONCE ONCE PO 12/29/24 16:00 12/29/24 16:01 DC 12/29/24 16:56 1 TAB Tamsulosin HCl 0.4 mg ONCE ONCE PO 12/29/24 16:00 12/29/24 16:01 DC 12/29/24 16:56 0.4 MG Assessment/Plan Assessment/Plan Assessment and plan -Intractable right flank pain, rule out pyelonephritis/nephrolithiasis -urinalysis negative for UTI - CT scan of abdomen pelvis revealed- Nonobstructing right renal calculi up to 2 mm. , -Large bilateral ovarian/ adnexal lesions measuring 4.8 cm on the left and 3.6 cm on the right. -ultrasound of the pelvis- Bilateral anechoic masses in the ovaries greater on the left than the right . 2.6 x 1.9 x 2.2 cm anechoic mass in the right ovary consistent with follicle and a 4.8 x 4.7 x 4.3 cm anechoic mass in the left ovary consistent with an ovarian cyst -continue Tylenol PRN # Bilateral ovarian mass like lesion -- CT scan of abdomen pelvis revealed-Large bilateral ovarian/ adnexal lesions measuring 4.8 cm on the left and 3.6 cm on the right. -Ultrasound of the pelvis-Bilateral anechoic masses in the ovaries greater on the left than the right .There is a 2.6 x 1.9 x 2.2 cm anechoic mass in the right ovary consistent with follicle and a 4.8 x 4.7 x 4.3 cm anechoic mass in the left ovary consistent with an ovarian cyst -pending CA 19.9, CA 125, -CEA <.5 -pending Gynecology and Obstetrics consultation #Renal Colic/ nephrolithiasis -CT scan of the abdomen- Nonobstructing right renal calculi up to 2 mm. -pain medication as prescribed -Flomax 0.4 mg p.o. daily -ordered mannitol once #Transaminitis -serum bilirubin 0.8, AST 82, ALT a 103, alkaline phosphatase 25 - ultrasound of the liver- Nonspecific increased echotexture of the pancreatic parenchyma -monitor CMP -pending acute hepatitis panel # hyperlipidemia -Atorvastatin 40 mg q.h.s. # obesity -patient was counseled about the effect of obesity on health, low-fat diet, physical activity, weight reduction # arthritis -continue Tylenol p.r.n. PCP- Matthias Marroquin MD Diet Regular Goals of care, Code status full code ; discussed with >15 minutes PUD prophylaxis: Pantoprazole DVT prophylaxis: Lovenox Plan discussed with Dr. Callejas , nursing staff, Total time spent on patient evaluation, chart review, assessment and plan, discussion discussion >35 minutes Plan discussed with: Patient, Other (RN) My Orders Orders - DANO ANDERSON RESIDENT Procedure Category Date Status Time Admit ADMIT 12/29/24 Transmitted 21:44 Code Status CODE 12/29/24 Transmitted 21:44 Sodium Chloride Lock PHA 12/29/24 Logged (Saline Lock Ns) 22:00 Enoxaparin Sodium PHA 12/30/24 Logged (Lovenox) 10:00 Complete Blood Count LAB 12/30/24 Verified 04:00 Comprehensive LAB 12/30/24 Verified Metabolic Panel 04:00 Acetaminophen Tablet PHA 12/29/24 Logged (Tylenol Tablet) 21:45 Notify Of Changes BAILEE 12/29/24 In Process From Base 21:44 Hepatic Panel LAB 12/29/24 Verified 21:47 Magnesium LAB 12/29/24 Verified 21:47 Famotidine Tablet PHA 12/29/24 Verified (Pepcid Tablet) 22:00 * Spinner Operator Consultation CONS 12/29/24 Verified 21:47 Date of Service: Dec 29, 2024 Billing Provider: DEISY CALLEJAS MD Common Visit Codes: 84328-CJIKVCO INP/OBS CARE (HIGH) Secondary Visit Codes: 22262-[id number] CARE PLAN 30 MINUTES DANO ANDERSON RESIDENT Dec 29, 2024 21:51
[2024-12-29 22:41] LABS: Albumin 4.4 g/dL (3.2-4.8); Bilirubin, Direct 0.2 mg/dL (<0.3); Bilirubin, Total 0.8 mg/dL (0.2-1.0); Magnesium 2.2 mg/dL (1.6-2.6); Total Protein 7.3 g/dL (5.7-8.2)
[2024-12-29 22:47] LABS: Alanine Aminotransferase 103.0 U/L (7-40); Alkaline Phosphatase 25.0 U/L (46-116)
--- NOTE | 2024-12-30 00:36 | DVH ---
CHEST RADIOGRAPH Indication: CONSOLIDATION Technique: Single frontal view of the chest was obtained COMPARISON: XY CHEST PORTABLE on DOS: 09/22/24 FINDINGS: Lines and Tubes: None Lungs: Clear Pleura: No effusion. No pneumothorax. Cardiomediastinal contours: Unremarkable Bones: Unremarkable IMPRESSION: 1. No acute disease.
[2024-12-30] MEDS: MANNITOL FTV 25% 12.5 GM/50 ML 100 ML IV ONE (00:45)
--- NOTE | 2024-12-30 02:35 | DVH ---
INDICATION: Rule out acute cholecystitis/cirrhosis of liver TECHNIQUE: Multiple real-time sonographic images were obtained of the right upper quadrant. COMPARISON: US GALLBLADDER on DOS: 08/10/23 FINDINGS: The liver demonstrates normal homogeneous echotexture without focal mass lesions. The liver measures 15.1 cm. Normal hepatopetal portal flow identified. No evidence of pleural effusion or abd ominal ascites. There is no intrahepatic or extrahepatic ductal dilatation. The common duct measures 0.4 cm. The gallbladder is without evidence of stone or sludge. The gallbladder wall measures 0.2 cm and is w ithin normal limits. The right kidney measures 8.8 cm. The right kidney is normal in contour, size, and shape. The echogen icity is normal. There is no hydronephrosis. The pancreas is not well visualized due to overlying bowel gas, however, the parenchyma is echogenic. IMPRESSION: 1. Nonspecific increased echotexture of the pancreatic parenchyma. Otherwise unremarkable right uppe r quadrant sonogram.
[2024-12-30] MEDS: SODIUM CHLOR 0.9% PF (SALINE LOCK) 10ML VIAL/SYR IV SCH (04:49)
[2024-12-30] MEDS: SODIUM CHLORIDE 0.9% 1,000 ML IV ONE (04:56)
[2024-12-30] MEDS: ATORVASTATIN 20 MG TAB PO ONE (05:03)
[2024-12-30] MEDS: FAMOTIDINE 20 MG TAB PO ONE (05:03)
[2024-12-30] MEDS: TAMSULOSIN HYDROCHLORIDE 0.4 MG CAP PO ONE (05:06)
[2024-12-30 05:42] VITALS: O2SAT 97
[2024-12-30 09:00] VITALS: BP 113/53; PULSE 73; RESP 18; TEMP 98.3; O2SAT 97
[2024-12-30 09:17] LABS: Hematocrit 43.6 % (36.0-46.0); Hemoglobin 14.6 g/dL (12.2-16.2); Mean Corpuscular Hemoglobin 28.0 pg (28.0-32.0); Mean Corpuscular Volume 83.5 fL (80.0-100.0); Nucleated Red Blood Cells % 0.2 %
[2024-12-30 09:31] LABS: Albumin 4.6 g/dL (3.2-4.8); Anion Gap 11 (5-15); BUN/Creatinine Ratio 17.9 (10.0-20.0); Bilirubin, Total 0.8 mg/dL (0.2-1.0); Blood Urea Nitrogen 15 mg/dL (9-23); Calcium 10.4 mg/dL (8.7-10.4); Carbon Dioxide 20 mmol/L (20-31); Chloride 104 mmol/L (98-107); Glucose 80 mg/dL (74-106); Potassium 4.0 mmol/L (3.5-5.1); Total Protein 7.7 g/dL (5.7-8.2)
[2024-12-30 09:35] LABS: Alanine Aminotransferase 114 U/L (7-40); Alkaline Phosphatase 28 U/L (46-116); Sodium 135 mmol/L (136-145)
[2024-12-30] MEDS ORDERED: VORT1TAB PO (09:43)
[2024-12-30] MEDS ORDERED: ATOR20TA50 PO (09:43)
[2024-12-30] MEDS ORDERED: DICL50TA2 PO (09:43)
[2024-12-30] MEDS ORDERED: PILO5TAB10 (09:43)
[2024-12-30] MEDS ORDERED: NITR100C6 PO (09:43)
[2024-12-30] MEDS ORDERED: GABA800T97 PO (09:43)
[2024-12-30] MEDS ORDERED: TIRZ2.5I2 (09:43)
[2024-12-30] MEDS: SODIUM CHLORIDE 0.9% 1,000 ML IV SCH (10:14)
[2024-12-30] MEDS: ENOXAPARIN SOD 40 MG/0.4 ML SYRINGE SC SCH (10:26)
[2024-12-30] MEDS: FAMOTIDINE 20 MG TAB PO SCH (10:26)
--- NOTE | 2024-12-30 10:34 | DVHPNRES ---
Progress Note Date Seen: Dec 30, 2024 Resident Creating Document: SERGIO YUAN RESIDENT Has the PT tested + for MRSA If YES, has PT been informed?: No Medical Necessity Reason Pt with a Central, PICC or Fol: No Subjective Review of Systems This is a 49 years old female patient with past medical history of hyperlipidemia, arthritis came with a complaint of right flank pain. As per patient right flank pain started today morning, gradual onset, pressure-like, 10/10, constant, relieved with some pain medication, no aggravating factor or no radiation. With that pain patient went to an urgent care center and she was asked to go to ER. Patient also reported occasional right lower abdominal pain, crampy in nature for last several months. Patient denied any dysuria, fever, vaginal discharge, diarrhea, history of STD/chest pain or shortness of breath or acute joint pain or swelling. urinalysis negative for UTI. Initial lab workup revealed serum bilirubin 0.8, AST 82, ALT a 103, alkaline phosphatase 25. CT scan of abdomen pelvis revealed- Large bilateral ovarian/ adnexal lesions measuring 4.8 cm on the left and 3.6 cm on the right. Nonobstructing right renal calculi up to 2 mm. Ultrasound of the pelvis revealed-Bilateral anechoic masses in the ovaries greater on the left than the right recommend follow-up study.There is a 2.6 x 1.9 x 2.2 cm anechoic mass in the right ovary consistent with follicle and a 4.8 x 4.7 x 4.3 cm anechoic mass in the left ovary consistent with an ovarian cyst. Ultrasound of the liver revealed- Nonspecific increased echotexture of the pancreatic parenchyma. 12/30/24: The patient was examined at bedside, the patient reports feeling better, her flank pain has improved 3/10, denies fever, chills, dysuria, vaginal discharge, abdominal pain. Urine culture and strain urine was requested today, CA 125 results still pending. The patient will continue with fluids. We will follow up with this patient. Review of Systems Allergy- NKDA Patient was seen today at the bedside. Cardiovascular- deny acute chest pain or shortness of breath or cough or palpitation Respiratory denies cough or short of breath or wheezing Gastrointestinal- denies any rectal bleeding, nausea or vomiting, Musculoskeletal-denies acute joint swelling or tenderness or redness,back pain Neurological- denies acute dysarthria, dysphagia, change in vision Psychiatry- denies depression or SI or HI Skin- denies acute rash or purpura Objective vital signs Vital Sign Date Time Temp Pulse Resp B/P (MAP) Pulse Ox O2 Delivery O2 Flow Rate FiO2 12/30/24 08:24 Room Air* 0 21 12/30/24 06:20 69 15 135/75 12/30/24 05:42 97 12/30/24 05:06 97.2 97.2 medications Current Medications Medications Dose Ordered Sig/Michelle Route Start Time Stop Time Status Last Admin Dose Admin Sodium Chloride 10 ml Q8HR IV 12/29/24 22:00 12/30/24 04:49 10 ML Enoxaparin Sodium 40 mg DAILY SC 12/30/24 10:00 Acetaminophen 650 mg Q6HP PRN PO 12/29/24 21:45 Acetaminophen/ Hydrocodone Bitart 1 tab Q6HPRN PRN PO 12/29/24 23:45 Tamsulosin HCl 0.4 mg QPM PO 12/30/24 18:00 Atorvastatin Calcium 40 mg HS PO 12/30/24 22:00 Famotidine 20 mg Q12HR PO 12/30/24 10:00 Sodium Chloride 1,000 ml @ 125 mls/hr Q8H IV 12/30/24 07:45 12/30/24 10:14 125 MLS/HR Examination Exam General examination- awake, alert, oriented, convert HEENT- PEERLA, no acute nasal discharge Cardiovascular- S1-S2 audible, rate and rhythm regular, no murmur Respiratory- CTAB, no wheeze or rhonchi Gastrointestinal-nontender, bowel sound+. Nondistended Musculoskeletal-right lower back mild tenderness+, Right costovertebral tendernes + Renal system-no renal angle tenderness Lower extremity- no leg edema Neurological- cranial nerves intact, no acute dysarthria or dysphagia Psychiatry- denies depression or SI or HI Skin- no acute rash or purpura laboratory and microbiology Laboratory Tests 12/30/24 08:46 Test 12/30/24 08:46 Range/Units Serum Glucose 80 74-106 mg/dL Problem List/Assessment/Plan Problem List/Assessment/Plan Assessment/Plan # Nephrolithiasis -Intractable right flank pain, rule out pyelonephritis/nephrolithiasis -urinalysis negative for UTI - CT scan of abdomen pelvis revealed- Nonobstructing right renal calculi up to 2 mm. , -Large bilateral ovarian/ adnexal lesions measuring 4.8 cm on the left and 3.6 cm on the right. -ultrasound of the pelvis- Bilateral anechoic masses in the ovaries greater on the left than the right . 2.6 x 1.9 x 2.2 cm anechoic mass in the right ovary consistent with follicle and a 4.8 x 4.7 x 4.3 cm anechoic mass in the left ovary consistent with an ovarian cyst -[place] PRN for pain # Bilateral ovarian mass lesion #Policystic ovarian Sd. -- CT scan of abdomen pelvis revealed-Large bilateral ovarian/ adnexal lesions measuring 4.8 cm on the left and 3.6 cm on the right. -Ultrasound of the pelvis-Bilateral anechoic masses in the ovaries greater on the left than the right .There is a 2.6 x 1.9 x 2.2 cm anechoic mass in the right ovary consistent with follicle and a 4.8 x 4.7 x 4.3 cm anechoic mass in the left ovary consistent with an ovarian cyst -pending CA 19.9, CA 125, -CEA <.5 -pending Gynecology and Obstetrics consultation #Renal Colic/ nephrolithiasis -CT scan of the abdomen- Nonobstructing right renal calculi up to 2 mm. -pain medication as prescribed -Flomax 0.4 mg p.o. daily -ordered mannitol once #Transaminitis -serum bilirubin 0.8, AST 82, ALT a 103, alkaline phosphatase 25 - ultrasound of the liver- Nonspecific increased echotexture of the pancreatic parenchyma -monitor CMP -pending acute hepatitis panel # Hyperlipidemia -Atorvastatin 40 mg q.h.s. # Obesity -patient was counseled about the effect of obesity on health, low-fat diet, physical activity, weight reduction # Arthritis -continue Tylenol p.r.n. Diet Regular Increase fluid intacke. PUD prophylaxis: Pantoprazole DVT prophylaxis: Lovenox Plan discussed with Dr. King. Total time spent on patient evaluation, chart review, assessment and plan, discussion discussion >35 minutes Plan discussed with: Patient and nurse. Code status: full code PCP- Matthias Marroquin MD Plan discussed with: Patient My Orders My Orders Orders - SERGIO YUAN RESIDENT Procedure Category Date Status Time Strain All Urine For BAILEE 12/30/24 In Process Stones 10:12 Urine Bacterial CRISTIAN 12/30/24 Uncollected Culture 10:22 Date of Service: Dec 30, 2024 Billing Provider: ANA PADILLA MD Common Visit Codes: [id number] INP/OBS CARE(HIGH) LISSYSERGIO RESIDENT Dec 30, 2024 10:34 ANA PADILLA MD Jan 03, 2025 01:12
--- NOTE | 2024-12-30 12:18 | DVHINCON2 ---
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 and her lAST PAP WAS 2 MONTHS AGO Past Medical History NA Past Surgical History CSX3,CARPAL TUNNEL SURGERY,NECK SUREGERY,BTL Family History NA Social History NA Patient Family History: Hypercholesterolemia G8 FATHER Hypertension G8 MOTHER G8 FATHER Allergies: Coded Allergies: Latex (Verified Allergy, Unknown, 08/10/23) Home Meds Reported Medications Gabapentin (Gabapentin) 800 Mg Tab, 1 TAB PO TID 12/30/24 Diclofenac Potassium (Diclofenac Potassium) 50 Mg Tab, 1 TAB PO BID 12/30/24 Atorvastatin Calcium (ATORVASTATIN CALCIUM) 20 Mg Tab, 1 TAB PO DAILY 12/30/24 Nitrofurantoin Monohyd Macro (Nitrofurantoin Monohydrat) 100 Mg Cap, 1 CAP PO 12/30/24 Tirzepatide (Zepbound) 2.5 Mg/0.5 Ml Inj, 1 12/30/24 [place] Hcl (Salagen) 5 Mg Tab, 1 12/30/24 Vortioxetine Hydrobromide (Trintellix) 5 Mg Tab, 1 TAB PO DAILY 12/30/24 Current Medications Current Medications Medications (Trade) Dose Ordered Sig/Michelle Route PRN Reason Start Time Stop Time Status Last Admin Sodium Chloride ([place]) 10 ml Q8HR IV 12/29/24 22:00 12/30/24 04:49 Enoxaparin Sodium (Lovenox) 40 mg DAILY SC 12/30/24 10:00 12/30/24 10:26 Acetaminophen (Tylenol Tablet) 650 mg Q6HP PRN PO PAIN SCALE 1-3 OR TEMP>100.4 12/29/24 21:45 Acetaminophen/ Hydrocodone Bitart ([place] 5/325MG Tab) 1 tab Q6HPRN PRN PO SEVERE PAIN (7-10 PAIN SCALE) 12/29/24 23:45 Tamsulosin HCl (Flomax) 0.4 mg QPM PO 12/30/24 18:00 Atorvastatin Calcium (Lipitor) 40 mg HS PO 12/30/24 22:00 Famotidine (Pepcid Tablet) 20 mg Q12HR PO 12/30/24 10:00 12/30/24 10:26 Sodium Chloride 1,000 ml @ 125 mls/hr Q8H IV 12/30/24 07:45 12/30/24 10:14 Review of Systems Constitutional: no fever, chill, weight loss HEENT: no eye pain, no hearing loss, no oral lesion, no scleral icterus Heart: no chest pain, no chest pressure Lung: no cough, no dyspnea with exertion Abdomen: see HPI : no pain with urination, normal appearing urine Musculoskeletal: no joint pain, no muscle pain Neurological: no seizure, no loss of sensation, no weakness in extremities Pysch: no depression, no anxiety Derm: no rash, no jaundice Vital Signs Vital Signs Date Time Temp Pulse Resp B/P (MAP) Pulse Ox O2 Delivery O2 Flow Rate FiO2 12/30/24 08:24 Room Air* 0 21 12/30/24 06:20 69 15 135/75 12/30/24 05:42 97 12/30/24 05:06 97.2 97.2 Physical Exam SKIN: [NL] HEENT: [NL] NECK: [NL] CARDIAC: [RRR] PULMONARY: CTA[] ABDOMEN: [SOFT,NT] PELVIC- EXT GENT WNL,CX NL ,UTERUS NL SIZE,ADENXA NT Labs/Diagnostic Data Labs Test 12/30/24 08:46 12/29/24 23:51 12/29/24 22:08 12/29/24 22:00 Range/Units White Blood Count 8.1 4.4-10.8 10^3/uL Red Blood Count 5.22 H 4.0-5.20 10^6/uL Hemoglobin 14.6 12.2-16.2 g/dL Hematocrit 43.6 36.0-46.0 % Mean Corpuscular Volume 83.5 80.0-100.0 fL Mean Corpuscular Hemoglobin 28.0 28.0-32.0 pg Mean Corpuscular Hemoglobin Concent 33.5 32.0-36.0 g/dL Red Cell Distribution Width 16.2 H 11.8-14.3 % Platelet Count 222 140-450 10^3/uL Mean Platelet Volume 8.6 6.9-10.8 fL Neutrophils (%) (Auto) 65.7 37.0-80.0 % Lymphocytes (%) (Auto) 23.9 10.0-50.0 % Monocytes (%) (Auto) 8.0 0.0-12.0 % Eosinophils (%) (Auto) 1.8 0.0-7.0 % Basophils (%) (Auto) 0.6 0.0-2.0 % Neutrophils # (Auto) 5.3 1.6-8.6 10 ^3/uL Lymphocytes # (Auto) 1.9 0.4-5.4 10 ^3/uL Monocytes # (Auto) 0.6 0-1.3 10 ^3/uL Eosinophils # (Auto) 0.1 0-0.8 10 ^3/uL Basophils # (Auto) 0.1 0-0.2 10 ^3/uL Nucleated Red Blood Cells 0.2 % Sodium Level 135 L 136-145 mmol/L Potassium Level 4.0 3.5-5.1 mmol/L Chloride Level 104 98-107 mmol/L Carbon Dioxide Level 20 20-31 mmol/L Anion Gap 11 5-15 Blood Urea Nitrogen 15 9-23 mg/dL Creatinine 0.84 0.550-1.02 mg/dL Glomerular Filtration Rate Calc 85 >90 mL/min BUN/Creatinine Ratio 17.9 10.0-20.0 Serum Glucose 80 74-106 mg/dL Calcium Level 10.4 8.7-10.4 mg/dL Total Bilirubin 0.8 0.2-1.0 mg/dL Aspartate Amino Transferase (AST) 77 H 13-40 U/L Alanine Aminotransferase (ALT) 114 H 7-40 U/L Alkaline Phosphatase 28 L 46-116 U/L Total Protein 7.7 5.7-8.2 g/dL Albumin 4.6 3.2-4.8 g/dL Lipase 26 12-53 U/L Hemoglobin A1c 4.8 <5.7 % A1C Vitamin B12 Level 1454 H 211-911 pg/mL Vitamin D 25-Hydroxy 45.5 30.0-100 ng/mL Folic Acid 18.70 >5.38 ng/mL Magnesium Level 2.2 1.6-2.6 mg/dL Direct Bilirubin 0.2 <0.3 mg/dL Carcinoembryonic Antigen < 0.50 <=5.0 ng/mL Test 12/29/24 13:41 Range/Units Urine Color Light-yellow Yellow Urine Clarity Turbid H Clear Urine pH 5.0 5.0-9.0 Urine Specific [place] 1.022 1.001-1.035 Urine Protein Negative Negative Urine Ketones Negative Negative Urine Blood Negative Negative /uL Urine Nitrite Negative Negative Urine Bilirubin Negative Negative Urine Urobilinogen Normal Negative mg/dL Urine Leukocyte Esterase Negative Negative /uL Urine RBC 1 0 - 4 /hpf Urine Microscopic WBC 2 0-5 /HPF Urine Squamous Epithelial Cells Few <5 /hpf Urine Uric Acid Crystals Few None Seen /hpf Urine Amorphous Crystals Few None Seen /hpf Urine Bacteria None seen None Seen /hpf Urine Mucus Few None Seen Urine Glucose Normal Normal mg/dL Urine Test Negative Negative Primary Diagnosis NEPHROLITHASIS 2' Diagnosis/Comorbidities BILATERAL OVARIAN CYSTS Plan REPEAT SONO IN 6WKS PT TO FU OUTPT WITH TEMPLATE WORKER WILL SIGN OFF THANK YOU Plan discussed with: Patient Visit Coding OBGYN Date of Service: Dec 30, 2024 Billing Provider: JILL BALDWIN DO [employer] Common Visit Codes: [id number] INP/OBS CARE(HIGH) [employer] Consultation Codes: [id number] CONSULT <80MIN JILL BALDWIN DO Dec 30, 2024 12:17
[2024-12-30 13:00] VITALS: BP 126/62; PULSE 83; RESP 16; TEMP 99; O2SAT 100
[2024-12-30 15:07] LABS: Chlamydia Trachomatis, NAA Negative (Negative); Neisseria gonorrhoeae, NAA Negative (Negative)
[2024-12-30 15:50] VITALS: BP 115/82; PULSE 71; RESP 18; TEMP 97.9; O2SAT 99
[2024-12-30] MEDS: TAMSULOSIN HYDROCHLORIDE 0.4 MG CAP PO SCH (17:20)
[2024-12-30] MEDS: HYDROcodone-ACET 5/325MG TAB PO PRN (17:21)
[2024-12-30 21:00] VITALS: BP 117/71; PULSE 88; RESP 18; TEMP 97.9; O2SAT 97
[2024-12-30] MEDS: ATORVASTATIN 20 MG TAB PO SCH (22:10)
[2024-12-31 05:00] VITALS: BP 126/73; PULSE 99; RESP 18; TEMP 97.9; O2SAT 94
[2024-12-31 06:31] LABS: Albumin 3.7 g/dL (3.2-4.8); Anion Gap 6 (5-15); BUN/Creatinine Ratio 20.0 (10.0-20.0); Blood Urea Nitrogen 16 mg/dL (9-23); Calcium 8.9 mg/dL (8.7-10.4); Carbon Dioxide 23 mmol/L (20-31); Glucose 87 mg/dL (74-106); Potassium 4.4 mmol/L (3.5-5.1); Sodium 140 mmol/L (136-145); Total Protein 6.1 g/dL (5.7-8.2)
[2024-12-31 06:32] LABS: Bilirubin, Total 0.5 mg/dL (0.2-1.0)
[2024-12-31 06:40] LABS: Alanine Aminotransferase 81 U/L (7-40); Alkaline Phosphatase 23 U/L (46-116); Chloride 111 mmol/L (98-107)
[2024-12-31 06:44] LABS: Hematocrit 40.2 % (36.0-46.0); Hemoglobin 13.3 g/dL (12.2-16.2); Mean Corpuscular Hemoglobin 27.9 pg (28.0-32.0); Mean Corpuscular Volume 84.0 fL (80.0-100.0); Nucleated Red Blood Cells % 0.4 %
[2024-12-31 08:22] VITALS: PULSE 80; RESP 18; O2SAT 98
[2024-12-31 08:44] VITALS: BP 126/79; PULSE 80; RESP 18; TEMP 97.7; O2SAT 98
[2024-12-31 10:08] LABS: Hepatitis B Surface Antigen Negative (Negative)
[2024-12-31 10:29] LABS: Hepatitis C Antibody Negative (Negative)
[2024-12-31 13:10] VITALS: BP 11/78; PULSE 76; RESP 18; TEMP 98.1; O2SAT 98
[2024-12-31] MEDS ORDERED: TAMS0.4C39 PO (13:22)
--- NOTE | 2024-12-31 15:25 | DVHDSRES ---
Discharge Summary Date of Admission Resident Creating Document: SERGIO YUAN RESIDENT Dec 29, 2024 at 21:51 Date of Discharge: Dec 31, 2024 Labs/Diagnostic Data: Laboratory Results Test 12/31/24 05:33 12/30/24 08:46 12/29/24 23:51 12/29/24 22:08 White Blood Count 4.9 10^3/uL (4.4-10.8) Red Blood Count 4.78 10^6/uL (4.0-5.20) Hemoglobin 13.3 g/dL (12.2-16.2) Hematocrit 40.2 % (36.0-46.0) Mean Corpuscular Volume 84.0 fL (80.0-100.0) Mean Corpuscular Hemoglobin 27.9 pg (28.0-32.0) Mean Corpuscular Hemoglobin Concent 33.2 g/dL (32.0-36.0) Red Cell Distribution Width 16.3 % (11.8-14.3) Platelet Count 216 10^3/uL (140-450) Mean Platelet Volume 8.7 fL (6.9-10.8) Neutrophils (%) (Auto) 59.5 % (37.0-80.0) Lymphocytes (%) (Auto) 25.3 % (10.0-50.0) Monocytes (%) (Auto) 9.7 % (0.0-12.0) Eosinophils (%) (Auto) 5.1 % (0.0-7.0) Basophils (%) (Auto) 0.4 % (0.0-2.0) Neutrophils # (Auto) 2.9 10 ^3/uL (1.6-8.6) Lymphocytes # (Auto) 1.2 10 ^3/uL (0.4-5.4) Monocytes # (Auto) 0.5 10 ^3/uL (0-1.3) Eosinophils # (Auto) 0.3 10 ^3/uL (0-0.8) Basophils # (Auto) 0 10 ^3/uL (0-0.2) Nucleated Red Blood Cells 0.4 % Sodium Level 140 mmol/L (136-145) Potassium Level 4.4 mmol/L (3.5-5.1) Chloride Level 111 mmol/L (98-107) Carbon Dioxide Level 23 mmol/L (20-31) Anion Gap 6 (5-15) Blood Urea Nitrogen 16 mg/dL (9-23) Creatinine 0.80 mg/dL (0.550-1.02) Glomerular Filtration Rate Calc 90 mL/min (>90) BUN/Creatinine Ratio 20.0 (10.0-20.0) Serum Glucose 87 mg/dL (74-106) Calcium Level 8.9 mg/dL (8.7-10.4) Total Bilirubin 0.5 mg/dL (0.2-1.0) Aspartate Amino Transferase (AST) 52 U/L (13-40) Alanine Aminotransferase (ALT) 81 U/L (7-40) Alkaline Phosphatase 23 U/L (46-116) Total Protein 6.1 g/dL (5.7-8.2) Albumin 3.7 g/dL (3.2-4.8) Lipase 26 U/L (12-53) Hepatitis A IgM Antibody Negative Hepatitis B Surface Antigen Negative (Negative) Hepatitis B Core IgM Antibody Negative (Negative) Hepatitis C Antibody Negative (Negative) Hemoglobin A1c 4.8 % A1C (<5.7) CA 19-9 Antigen 27 U/mL (0-35) CA 125 Antigen 13.3 U/mL (0.0-38.1) Vitamin B12 Level 1454 pg/mL (211-911) Vitamin D 25-Hydroxy 45.5 ng/mL (30.0-100) Folic Acid 18.70 ng/mL (>5.38) Magnesium Level 2.2 mg/dL (1.6-2.6) Direct Bilirubin 0.2 mg/dL (<0.3) Test 12/29/24 22:00 12/29/24 13:41 Carcinoembryonic Antigen < 0.50 ng/mL (<=5.0) Urine Color Light-yellow (Yellow) Urine Clarity Turbid (Clear) Urine pH 5.0 (5.0-9.0) Urine Specific [place] 1.022 (1.001-1.035) Urine Protein Negative (Negative) Urine Ketones Negative (Negative) Urine Blood Negative /uL (Negative) Urine Nitrite Negative (Negative) Urine Bilirubin Negative (Negative) Urine Urobilinogen Normal mg/dL (Negative) Urine Leukocyte Esterase Negative /uL (Negative) Urine RBC 1 /hpf (0 - 4) Urine Microscopic WBC 2 /HPF (0-5) Urine Squamous Epithelial Cells Few /hpf (<5) Urine Uric Acid Crystals Few /hpf (None Seen) Urine Amorphous Crystals Few /hpf (None Seen) Urine Bacteria None seen /hpf (None Seen) Urine Mucus Few (None Seen) Urine Glucose Normal mg/dL (Normal) Urine Test Negative (Negative) Chlamydia trachomatis (PETER) Negative (Negative) Neisseria gonorrhoeae (PETER) Negative (Negative) Other Laboratory Tests 12/31/24 05:33 Brief Hx & Hospital Course: This is a 49 years old female patient with past medical history of hyperlipidemia, arthritis came with a complaint of right flank pain. As per patient right flank pain started today morning, gradual onset, pressure-like, 10/10, constant, relieved with some pain medication, no aggravating factor or no radiation. With that pain patient went to an urgent care center and she was asked to go to ER. Patient also reported occasional right lower abdominal pain, crampy in nature for last several months. Patient denied any dysuria, fever, vaginal discharge, diarrhea, history of STD/chest pain or shortness of breath or acute joint pain or swelling. urinalysis negative for UTI. Initial lab workup revealed serum bilirubin 0.8, AST 82, ALT a 103, alkaline phosphatase 25. CT scan of abdomen pelvis revealed- Large bilateral ovarian/ adnexal lesions measuring 4.8 cm on the left and 3.6 cm on the right. Nonobstructing right renal calculi up to 2 mm. Ultrasound of the pelvis revealed-Bilateral anechoic masses in the ovaries greater on the left than the right recommend follow-up study.There is a 2.6 x 1.9 x 2.2 cm anechoic mass in the right ovary consistent with follicle and a 4.8 x 4.7 x 4.3 cm anechoic mass in the left ovary consistent with an ovarian cyst. Ultrasound of the liver revealed- Nonspecific increased echotexture of the pancreatic parenchyma. 12/30/24: The patient was examined at bedside, the patient reports feeling better, her flank pain has improved 3/10, denies fever, chills, dysuria, vaginal discharge, abdominal pain. Urine culture and strain urine was requested today, CA 125 results still pending. The patient will continue with fluids. We will follow up with this patient. 12/31/24: The patient was examined at bedside, the patient reports feeling better, her flank pain has improved 0/10, denies fever, chills, dysuria, vaginal discharge, abdominal pain. CA 125: within normal limits: 13.3. The patient will be discharge today, She will follow up with gynecology as out patient for ovary cysts, and follow up with PCP in 1 week Review of Systems Allergy- NKDA Patient was seen today at the bedside. Cardiovascular- deny acute chest pain or shortness of breath or cough or palpitation Respiratory denies cough or short of breath or wheezing Gastrointestinal- denies any rectal bleeding, nausea or vomiting, Musculoskeletal-denies acute joint swelling or tenderness or redness, Neurological- denies acute dysarthria, dysphagia, change in vision Psychiatry- denies depression or SI or HI Skin- denies acute rash or purpura Physcial Exam: General examination- awake, alert, oriented, convert HEENT- [place]ERLA, no acute nasal discharge Cardiovascular- S1-S2 audible, rate and rhythm regular, no murmur Respiratory- CTAB, no wheeze or rhonchi Gastrointestinal-nontender, bowel sound+. Nondistended Musculoskeletal-right lower back mild tenderness+, Right costovertebral tenderness negative Renal system-no renal angle tenderness Lower extremity- no leg edema Neurological- cranial nerves intact, no acute dysarthria or dysphagia Psychiatry- denies depression or SI or HI Skin- no acute rash or purpura Assessment/Plan # Nephrolithiasis -Intractable right flank pain, rule out pyelonephritis/nephrolithiasis -urinalysis negative for UTI - CT scan of abdomen pelvis revealed- Nonobstructing right renal calculi up to 2 mm. , -Large bilateral ovarian/ adnexal lesions measuring 4.8 cm on the left and 3.6 cm on the right. -ultrasound of the pelvis- Bilateral anechoic masses in the ovaries greater on the left than the right . 2.6 x 1.9 x 2.2 cm anechoic mass in the right ovary consistent with follicle and a 4.8 x 4.7 x 4.3 cm anechoic mass in the left ovary consistent with an ovarian cyst -[place] PRN for pain # Bilateral ovarian masses/ovarian cysts #Policystic ovarian Sd. -- CT scan of abdomen pelvis revealed-Large bilateral ovarian/ adnexal lesions measuring 4.8 cm on the left and 3.6 cm on the right. -Ultrasound of the pelvis-Bilateral anechoic masses in the ovaries greater on the left than the right .There is a 2.6 x 1.9 x 2.2 cm anechoic mass in the right ovary consistent with follicle and a 4.8 x 4.7 x 4.3 cm anechoic mass in the left ovary consistent with an ovarian cyst -CA 19.9, CA 125, Both with in normal limits -CEA <.5 -Gynecology and Obstetrics consultation: follow up with gynecology in one week. #Renal Colic/ nephrolithiasis -CT scan of the abdomen- Nonobstructing right renal calculi up to 2 mm. -pain medication as prescribed -Tamsulosin 0.4mg po #Transaminitis, likely to fatty liver. -serum bilirubin 0.8, AST 82, ALT a 103, alkaline phosphatase 25 - ultrasound of the liver- Nonspecific increased echotexture of the pancreatic parenchyma -monitor CMP - acute hepatitis panel negative # Hyperlipidemia -Atorvastatin 40 mg q.h.s. # Obesity -patient was counseled about the effect of obesity on health, low-fat diet, physical activity, weight reduction # Arthritis -continue Tylenol p.r.n. Diet Regular Increase fluid intacke. PUD prophylaxis: Pantoprazole DVT prophylaxis: Lovenox Plan discussed with Dr. King. Total time spent on patient evaluation, chart review, assessment and plan, discussion discussion >35 minutes Plan discussed with: Patient and nurse. Code status: full code PCP- Matthias Marroquin MD Plan discussed with: Patient Condition at Discharge: Stable Final Diagnosis/Problems List -Intractable abdominal pain -Renal colic -Nephrolithiatis -Transaminitis -Hyperlipidemia -Obseity -Arthritis Discharge Disposition: Home Discharge Instruct/Medications Diet: Renal Activity: No Restrictions, As Tolerated Follow Up/Referral: Follow up with PCP in 1 week Medications: -Tamsolusin 0.4mg po qd -Increase oral water intake Scheduled Atorvastatin Calcium (Atorvastatin Calcium), 1 TAB PO DAILY, (Reported) Diclofenac Potassium (Diclofenac Potassium), 1 TAB PO BID, (Reported) Gabapentin (Gabapentin), 1 TAB PO TID, (Reported) Tamsulosin Hcl (Tamsulosin Hcl), 1 CAP PO DAILY Vortioxetine Hydrobromide (Trintellix), 1 TAB PO DAILY, (Reported) Miscellaneous Medications Nitrofurantoin Monohyd Macro (Nitrofurantoin Monohydrat), 1 CAP PO, (Reported) [place] Hcl (Salagen), 1, (Reported) Tirzepatide (Zepbound), 1, (Reported) Discharge Statement: "Patient was advised to return to the ER or call 911 if any headaches, dizziness, shortness of breath, chest pain, abdominal pain, bleeding, fevers, or worsening of medical condition. Patient was counseled about treatment plan, medications, possible side effects, patientverbalized understanding. All questions were answered to the best of my ability. This discharge took greater then 30 minutes in planning, reviewing documentation, counseling the patient, and discussing with other team members." ASSESSMENT ASSESSMENT Assessment -Intractable abdominal pain -Renal colic -Nephrolithiatis -Transaminitis -Hyperlipidemia -Obseity -Arthritis Date of Service: Dec 31, 2024 Billing Provider: ANA PADILLA MD Common Visit Codes: [id number]/[id number] DISCH DAY >30min SERGIO YUAN RESIDENT Dec 31, 2024 15:24 ANA PADILLA MD Jan 03, 2025 21:37
[2024-12-31 15:35] VITALS: BP 111/78; PULSE 76; RESP 18; TEMP 98.1; O2SAT 98
[2024-12-31 16:46] VITALS: BP 105/71; PULSE 82; RESP 18; TEMP 98.4; O2SAT 98
== END 2024-12-31 16:30 | disposition home or self-care (01) | DRG 465 ==
LOC: ER 13:10 → OVERFLOW 21:51 → CENTRAL 12-30 15:42
PROVIDERS: ADMIT Student in an Organized Health Care Education/Training Program; ATTEND Student in an Organized Health Care Education/Training Program
DX: N20.0 Calculus of kidney (principal); E66.9 Obesity, unspecified; N83.201 Unspecified ovarian cyst, right side; I10 Essential (primary) hypertension; E78.5 Hyperlipidemia, unspecified; N83.202 Unspecified ovarian cyst, left side; R74.01 Elevation of levels of liver transaminase levels; Z68.38 Body mass index [BMI] 38.0-38.9, adult; F17.200 Nicotine dependence, unspecified, uncomplicated; Z79.899 Other long term (current) drug therapy; Z91.040 Latex allergy status; Z82.49 Family history of ischemic heart disease and other diseases of the circulatory system; Z83.49 Family history of other endocrine, nutritional and metabolic diseases
CPT/HCPCS: 36415; 71045; 74176; 76705; 76856; 80048; 80053; 80074; 80076; 81001; 81025; 82306; 82378; 82607; 82746; 83036; 83690; 83735; 85025; 86301; 86304; 87086; 96374; 96375; 99291; G0378; J2405